=== PATIENT | male | born 1995 | race Caucasian/White ===

== ENCOUNTER → 2019-07-11 | Outpatient (CLI) | payer OTHER | LOC: RAD 07:34 | DX: S06.320A Contusion and laceration of left cerebrum without loss of consciousness, initial encounter (principal) | CPT/HCPCS: A9585 ==

== ENCOUNTER → 2019-09-11 | Outpatient (CLI) | payer OTHER | LOC: RAD 15:40 | DX: M43.06 Spondylolysis, lumbar region (principal); M51.15 Intervertebral disc disorders with radiculopathy, thoracolumbar region ==

== ENCOUNTER → 2019-12-15 | Outpatient (CLI) | payer OTHER | LOC: LAB 09:52 | DX: U07.1 COVID-19 (principal) ==

== ENCOUNTER → 2021-03-10 | Outpatient (CLI) | payer OTHER | LOC: LAB 16:40 | DX: Z20.822 Contact with and (suspected) exposure to COVID-19 (principal) ==

== ENCOUNTER → 2021-07-15 | Outpatient (CLI) | payer OTHER | LOC: RAD 13:55 | DX: M25.561 Pain in right knee (principal) ==